=== PATIENT | male | born 1965 | race Caucasian/White ===

== ENCOUNTER 2020-12-05 07:25 | Outpatient (REF) | payer OTHER, SELFPAY ==
[2020-12-05 10:11] LABS: Anion Gap 11 (12-20); Blood Urea Nitrogen 19 mg/dL (9-16); Carbon Dioxide 29 mmol/L (22-29); Chloride 105 mmol/L (96-108); Estimated Glomerular Filt Rate > 60; Potassium 4.1 mmol/L (3.3-5.1); Sodium 141 mmol/L (135-145)
== END 2020-12-05 07:26 | disposition home or self-care (01) ==
LOC: HO.LAB 07:25
PROVIDERS: PCP Family Medicine; Visit Provider Family Medicine
DX: I10 Essential (primary) hypertension (principal)
CPT/HCPCS: 36415; 80051; 82565; 84520

== ENCOUNTER 2020-12-23 09:09 | Outpatient (REF) | payer OTHER, SELFPAY ==
--- NOTE | ~2020-12-23 | XR_ITS ---
EXAMINATION: XR ELBOW, LEFT CLINICAL INFORMATION: Pain. COMPARISON: Prior radiographs, most recently 12/27/2016. TECHNIQUE: AP, lateral, and oblique views of the left elbow. FINDINGS: Bony alignment and mineralization are normal. No acute fracture or joint effusion. The previously noted radial head fracture has healed in the interim. There is mild cortical irregularity of the anterior aspect of the distal humeral shaft, seen on the lateral view. Alignment is anatomic. Joint spaces are maintained. A tiny enthesophyte arises from the olecranon process. There is no soft tissue gas or foreign body. XR/XR elbow LT 2V IMPRESSION: Unremarkable examination, without acute fracture, dislocation or joint effusion is seen.
== END 2020-12-23 09:10 | disposition home or self-care (01) ==
LOC: HO.XRAY 09:09
PROVIDERS: PCP Family Medicine; Visit Provider Family Medicine
DX: M25.522 Pain in left elbow (principal); Z87.81 Personal history of (healed) traumatic fracture
CPT/HCPCS: 73070

== ENCOUNTER 2022-07-13 10:16 | Outpatient (REF) | payer OTHER, SELFPAY ==
[2022-07-13 13:59] LABS: Alanine Aminotransferase 61 U/L (0-40); Anion Gap 13 (12-20); Aspartate Amino Transferase 31 U/L (5-37); Blood Urea Nitrogen 18 mg/dL (9-16); Carbon Dioxide 28 mmol/L (22-29); Chloride 105 mmol/L (96-108); Cholesterol 222 mg/dL; Estimated Glomerular Filt Rate > 60; Glucose Fasting 89 mg/dL (60-99); HDL Cholesterol 32 mg/dL; LDL Cholesterol Calculated 164 mg/dl; Sodium 142 mmol/L (135-145); Triglycerides 132 mg/dL
[2022-07-13 14:17] LABS: Prostate Specific Antigen 0.77 ng/mL (<0.05-4.0)
== END 2022-07-13 10:17 | disposition home or self-care (01) ==
LOC: HO.10HDL 10:16
PROVIDERS: Visit Provider Family Medicine
DX: I10 Essential (primary) hypertension (principal); E78.00 Pure hypercholesterolemia, unspecified; R73.9 Hyperglycemia, unspecified; R35.1 Nocturia; Z79.899 Other long term (current) drug therapy; Z12.5 Encounter for screening for malignant neoplasm of prostate
CPT/HCPCS: 36415; 80051; 80061; 82550; 82565; 82947; 84153; 84450; 84460; 84520

== ENCOUNTER 2023-07-19 13:37 | Emergency (ER) | payer BC, SELFPAY ==
[2023-07-19 14:14] VITALS: BP 173/103; PULSE 75; RESP 16; TEMP 36.6; O2SAT 96; BMI 30.3
--- NOTE | 2023-07-19 14:24 | ED_ITS ---
HPI - Neuro Symptoms/Deficit General Chief Complaint: Neuro Symptoms/Deficit Stated Complaint: Numbness/drooping R side of face - sent by Dr Time Seen by Provider: 07/19/23 14:24 Source: patient, RN notes reviewed and old records reviewed Mode of arrival: ambulatory Limitations: no limitations History of Present Illness HPI Narrative: 57-year-old male past medical history significant for high blood pressure prese nts for evaluation of left facial numbness. Patient reports that he felt well when he woke up this morning. He reports when he went to call his dog and sling he was unable to whistle which is unusual for him He reports that he can not close his left eye the entire way. He reports he is unable to smile with the left side of his mouth He denies any headache, head trauma. He is moving all extremities without any issues No other complaints or concerns at this time Related Data Previous Rx's ?Medication ?Instructions ?Recorded prednisone 20 mg tablet 40 mg (2 x 20 mg) PO DAILY #10 tabs 07/19/23 valacyclovir 1 gram tablet 1,000 mg PO TID #21 tabs 07/19/23 Allergies Allergy/AdvReac Type Severity Reaction Status Date / Time No Known Allergies Allergy Verified 07/19/23 14:15 [No Known Allergies*] Review of Systems Constitutional: Constitutional: Denies body ache(s), Denies chills, Denies fever(s) and Denies headache(s) Eyes: Eyes: Denies blurry vision ENT: Denies headache(s) and Denies sore throat Cardiovascular: Cardiovascular: Denies chest pain and Denies dyspnea Respiratory: Respiratory: Denies cough and Denies dyspnea Gastrointestinal: Gastrointestinal: Denies abdominal pain, Denies nausea and Denies vomiting Musculoskeletal: Musculoskeletal: Denies back pain, Reports numbness and Reports tingling Integumentary/Breasts: Skin/Breast: Denies rash Neurologic: Denies headache(s), Reports focal weakness (facial droop), Reports numbness and Reports tingling PMFSH Social History Social History Advance Directives: No Advance Directives Information Provided: Yes Physical Exam Vital Signs: Vital Signs: Last Vital Signs Temp 97.8 F 07/19/23 14:14 Pulse 75 07/19/23 14:14 Resp 16 07/19/23 14:14 BP 173/103 H 07/19/23 14:14 Pulse Ox 96 07/19/23 14:14 O2 Del Method Room Air 07/19/23 14:14 BMI result Body Mass Index 30.3 Const: General: healthy appearing, comfortable, no acute distress, alert and awake Nutritional Appearance: well nourished Orientation/consciousness: patient oriented x3 HEENT: Head: Yes normocephalic and Yes atraumatic Eyes: Eyelids: Yes eyelids normal Conjunctivae: conjunctivae normal Sclerae: sclerae normal Corneas: corneas normal Pupils: Equal, round and reactive pupils present EOM: EOMs intact bilaterally Neck: Neck: Yes full ROM Resp: Effort & Inspection: normal respiratory effort, able to speak in complete sentences and not labored Skin: General skin exam: elasticity normal Neuro: Other: Patient has left-sided facial droop. This clearly affecting the forehead. He is able to close his left eye but is slightly delayed compared to the right. The patient has inability to raise the left corner of his mouth. Strength to all major muscle groups of the bilateral upper and lower extremities is 5/5 with good dexterity. General: patient oriented x3 Cranial nerves: Yes Equal, round and reactive pupils present and Yes Bilaterally intact EOM present Cognition (Neuro): normal cognition Medical Decision Making Medical Decision Making MDM Narrative: 57-year-old male presents for evaluation of left-sided facial droop. He woke up in the symptoms this morning. Onset was 7 point last night, last known well time was late last night. However, his symptoms are very classic for Leblanc's palsy as it affects the forehead, the patient has no numbness, tingling or weakness to any of his extremities, no difficulty with speech. Will treat for Leblanc's palsy Differential Diagnosis Differential Diagnoses: The differential diagnosis associated with the presentation includes Leblanc's palsy Cranial nerve 7 palsy CVA TIA Tests considered The following testing was considered but not selected: Consider CT scan of the brain Discharge Plan Discharge Clinical Impression: Leblanc's palsy Patient Disposition: Home, Self-Care Instructions: Leblanc Palsy (ED) Additional Instructions: Your symptoms are consistent with classic Leblanc's palsy. Most cases of Leblanc's palsy resolve within a week but can occasionally be longer Take prednisone 40 mg daily for the next 5 days Take valacyclovir 3 times daily for 1 week Follow-up with your primary doctor Return for new or worsening symptoms Prescriptions: New prednisone 20 mg tablet 40 mg PO DAILY Qty: 10 0RF valacyclovir 1 gram tablet 1,000 mg PO TID Qty: 21 0RF Stand Alone Forms: Work/School Release Print Language: Swedish
[2023-07-19 14:36] VITALS: BP 173/103; PULSE 75; RESP 16; TEMP 36.6; O2SAT 96
== END 2023-07-19 14:36 | disposition home or self-care (01) ==
PROVIDERS: Emergency Provider Emergency Medicine; PCP Family Medicine
DX: G51.0 Bell's palsy (principal)
CPT/HCPCS: 99282; 99283

== ENCOUNTER 2023-11-23 09:52 | Outpatient (REF) | payer BC, SELFPAY ==
[2023-11-23 11:10] LABS: Estimated Average Glucose 111 mg/dL; Hemoglobin A1c % 5.5 % (<6.0)
[2023-11-23 11:26] LABS: Alanine Aminotransferase 66 U/L (0-40); Anion Gap 14 (12-20); Aspartate Amino Transferase 32 U/L (5-37); Blood Urea Nitrogen 14 mg/dL (9-16); Carbon Dioxide 29 mmol/L (22-29); Chloride 103 mmol/L (96-108); Cholesterol 227 mg/dL (<200); Estimated Glomerular Filt Rate > 60; Glucose Fasting 98 mg/dL (60-99); HDL Cholesterol 36 mg/dL (>40); LDL Cholesterol Calculated 137 mg/dL (<100); Potassium 4.8 mmol/L (3.3-5.1); Sodium 141 mmol/L (135-145); Triglycerides 272 mg/dL (<150)
== END 2023-11-23 09:53 | disposition home or self-care (01) ==
LOC: HO.10HDL 09:52
PROVIDERS: Visit Provider Family Medicine
DX: I10 Essential (primary) hypertension (principal); R73.9 Hyperglycemia, unspecified; E78.00 Pure hypercholesterolemia, unspecified; R11.0 Nausea
CPT/HCPCS: 36415; 80051; 80061; 82565; 82947; 83036; 84450; 84460; 84520

== ENCOUNTER 2024-05-30 08:50 | Outpatient (REF) | payer BC, SELFPAY ==
--- NOTE | ~2024-05-30 | XR_ITS ---
EXAMINATION: XR CHEST 2 VIEWS HISTORY: Cough, sob COMPARISON: There are no prior studies for comparison. FINDINGS: PA and lateral views of the chest are submitted. There is patchy airspace opacity in the right lower lobe consistent with pneumonia. The left lung is clear. There is no pleural effusion, pneumothorax, or pulmonary vascular congestion. The heart is normal in size. There is degenerative disc disease of the spine. XR/XR chest 2V IMPRESSION: Right lower lobe pneumonia. Follow-up is recommended to document resolution. Electronically signed by: Agustin Dela Cruz MD 05/30/2024 09:10 AM EDT
--- OUTSIDE RECORDS SUMMARY | 2024-05-30 09:46 | XMS_ITS | Data Portability ---
Author Organization [facility] [address] Address [address] [place] [address] Assessment No assessment recorded. Plan of Treatment Reminders Order Date Submit Date Provider Last Modified By Organization Details Last Modified Time Details Appointments None recorded. Lab None recorded. Referral nursing staff development coordinator referral 2022 023 [email or web address] Grace Fuentes DPM, [address] [place] [address], [address], 17:03:50 Procedures None recorded. Surgeries None recorded. Imaging None recorded. Medication Orders mupirocin 2 % topical ointment 2022 023 [facility][id number], [address] [place], [address], 16:59:27 amoxicillin 875 mg-potassiu m clavulanate 125 mg tablet 2022 023 [id number], [address] [place], [address], 16:59:27 Patient TargetsNo targets recorded. Patient Instructions Encounter Date Encounter Id Patient Instructions Last Modified By Organization Details Last Modified Time 03/07/2023 [id number] cellulitis: care instructions [email or web address] Not available 03/07/2023 16:59:25 ingrown toenail: care instructions [email or web address] Not available 03/07/2023 16:59:39 Take the antibiotic and use the ointment as prescribed. Soak your toe in warm water several times daily. A referral to podiatry has been made for you - Call Dr. Fuentes for an appointment as soon as possible. See printed instructions. Do not manipulate the area. Seek Emergency Medical evaluation for any worsening symptoms, particularly for fever, chills, increased pain, redness or swelling of the toe. [email or web address] Not available 03/07/2023 17:01:25 Reason for Referral Permit Specialist Referral for Ingr owing nail of toe of left foot Infected, ingrown left great toenail. Referring Physician: Corrine Snow, Urgent Care, Encounter Date: 03/07/2023 Problems Name Problem SNOMED Code Status Onset Date Resolution Date Notes Provider Name and Address Organization Details Recorded Time Hypertensive disorder 20945850 Active [facility] [employer] 3 16:17:45 Problem Notes None recorded. Medical Equipment None Reported. Allergies No known drug allergies Medications Name Sig Start Date Stop Date Status Note LastModified by Organization Details LastModified Time lisinopril 20 mg tablet TAKE 1 TABLET BY MOUTH EVERY DAY active Not Available Not Available No t Available sildenafil 100 mg tablet TAKE 1/2 TABLET BY MOUTH NEEDED active Not Available Not Available No t Available mupirocin 2 % topical ointment APPLY A SMALL AMOUNT TO AFFECTED AREA 3 TIMES A DAY active Not Available Not Available No t Available amoxicillin 875 mg-potassium clavulanate 125 mg tablet TAKE 1 TABLET BY MOUTH EVERY 12 HOURS FOR 7 DAYS active Not Available Not Available No t Available Vitals Date Recorded Body height Body mass index (BMI) Body weight Oxygen saturation Oxygen saturation in Arterial blood by Pulse oximetry Heart rate Respiratory rate Body temperature Pain severity - 0-10 verbal numeric rating [Score] - Reported Systolic blood pressure Diastolic blood pressure Provider Name and Address Organization Details Last Updated DateTime 3 177.8 cm 29.4 kg/m2 29571.4 4 g 99 % 99 % 89 /min 18 /min 98.6 [degF] 8 148 mm[Hg] 95 mm[Hg] [employer]oro [employer] 3 16:16:28 Social History Question Answer Notes LastModified by Organizat ion Details LastModified Time Tobacco Smoking Status Never Smoker [facility] 03/07/2023 16:18:02 What Is Your Level Of Alcohol Consumption? None Information not available 03/07/2023 Are You Currently Employed? Yes Information not available 03/07/2023 Have You Had A Flu Shot This Season? Yes Information not available 03/07/2023 What Is Your Relationship Status? Information not available 03/07/2023 Do You Use Any Illicit Or Recreational Drugs? No Information not available 03/07/2023 Are You Currently In School? No Information not available 03/07/2023 Do You Or Have You Ever Used Any Other Forms Of Tobacco Or Nicotine? No Information not available 03/07/2023 Sex: Unknown Functional Status None recorded. Mental Status None recorded. Family History Relationship Description Onset Age of this Age Resolved Age Notes LastModified by Organization Details LastModified Time Father No current problems or disability Not available 03/07 16:17:47 Mother No current problems or disability Not available 03/07 16:17:48 Medical History No medical history recorded. Past Encounters Encounter ID Performer Location Encounter Start Date Encounter Closed Date Diagnosis/Indication Diagnosis SNOMED-CT Code Diagnosis ICD10 Code Diagnosis Note [id number] [address] [address] 05/31/2019 11:38:14 05/31/2019 12:32:36 [id number] Corrine [place] [address] [place] [address] 03/07/2023 15:57:49 03/07/2023 17:03:49 Localized infection of skin AND/OR subcutaneous tissue 499426098 L08.9 Ingrowing nail of toe of left foot 1961341351 6304954 L60.0 Health Concerns Section Related Observation LastModified by Organization Detai ls LastModified Time None Recorded Concern Status LastModified by Organization Details LastModified Time None Recorded Advance Directives Directive None Recorded Payers Encounter Date Sequence Insurance Name Policy Number Policy Hadley Covered Member ID Hadley Member ID Guarantor Name 03/07/2023 1 [facility] [id number] Agustin Dubose [id number] 1 Agustin Dubose Notes Date Note Type Note Provider Name and Address Organization Details Recorded Time 3 text/html ToesReported bypatient.source of patient informationInformation obtained from patient; Patient arrived at Urgent Care ambulatory Location:left; lateral; dorsal Quality:aching; throbbing; constant; worsening Severity:moderate Duration:2 weeks Timing:gradual Context:atraumatic Alleviating Factors:nothing helps Aggravating Factors:walking; Palpation. Wearing shoes. Associated Symptoms:no weakness; no numbness; no tingling; no ecchymosis; no catching/locking; no popping/clicking; no buckling; no grinding; no instability; no fever; no chills;swelling;redness;war mth;drainage Previous Surgery:none Prior Imaging:none Previous Injections:none Previous PT:noneNotes:57 year old male presenting for evaluation of left great toe pain, redness, swelling about lateral aspect of nail getting progressively worse for the past 2 weeks. He has been manipulating the area with increased pain. He has had some purulent drainage for a few days. No red streaking, fever or chills. No numbness or weakness of the digit. No hx of preceeding trauma. Corrine Snow MD [address] [place], [address], [place] - [facility] 03/08/2023 12:57:01
--- OUTSIDE RECORDS SUMMARY | 2024-05-30 09:47 | XMS_ITS | Patient Health Record ---
Author Organization [facility] Address [address] [place] [address] Care Team Providers Care Coke Handling Supervisor Name Role Phone Barrett Domingo MD Primary Care Provider Unavail jeremiah Montse Leblanc Unavailable [phone] Allergies No Known Allergies Reason For Referral No Information Medications Medication SIG (Take, Route, Fr equency, Duration) Notes Start Date End Date Status Lisinopril 20 MG 1 tablet Orally Once a day Active Cephalexin 500 MG 1 capsule Orally nic ry 12 hrs for 5 days Active Social History Tobacco Use: Social History Observation Description Date Details (start date - stop date) Former Smoker NA - NA Tobacco Use/Smoking Question Answer Notes Are you a: former smoker Additional Findings: Tobacco Non-User Current no n-smoker Alcohol Screen Question Answer Notes Did you have a drink containing alcohol in the p ast year? Yes Points 0 Interpretation Negative Tobacco use other than smoking: Question Answer Notes Are you an other tobacco user? No Vital Signs Height 5 ft 10 in in 06/13/2023 Weight 205 lbs 06/13/2023 BMI 29.41 kg/m2 06/13/2023 Encounters Encounter Location Date Provider Diagnosis [facility] [address] [place] [address] 06/13/2023 Montse Leblanc Abscess of toe, left L02.612 and Cellulitis of toe of left foot L03.032 Assessments Encounter Date Diagnosis (ICD Code) Assessment Notes Treatment Notes Treatment Clinical Notes Section Notes 06/13/2023 Abscess of toe, left (ICD-10 - L02.612) Patient Educated with: WOUND CARE INSTRUCTIONS.p df (WOUND CARE INSTRUCTIONS.p df) 06/13/2023 Cellulitis of toe of left foot (ICD-10 - L03.032) Plan Of Treatment No Information Insurance Providers Payer Name Payer Address Payer Phone Subscriber Number Group Number Insured Name Patient Relationship to Insured Coverage Start Date Coverage End Date [facility] All Others [address] [place] [address] [id number] Agustin Dubose Self - patient is the insured Medical (General) History Medical History History ICD Code High blood pressure Measles Mumps Chicken pox Surgical History Surgery Date(Month/Year) appendectomy broken left elbow
--- OUTSIDE RECORDS SUMMARY | 2024-05-30 09:47 | XMS_ITS ---
Author Organization [facility] Address [address] [place] [address] Care Team Providers Care Word Processor Name Role Phone Barrett Domingo MD Primary Care Provider Unavail jeremiah Deana Montse Unavailable [phone] Allergies No Known Allergies REASON FOR VISIT pt states last pcp visit 05/2022, Possible Infection, Skin problem(s) Medications Medication SIG (Take, Route, Fr equency, [...] 06/13/2023 Encounters Encounter Location Date Provider Diagnosis [facility] [address] [place] [address] 06/13/2023 Montse Leblanc Abscess of toe, left L02.612 and Cellulitis of toe of left foot L03.032 Assessments Encounter Date Diagnosis (ICD Code) Assessment Notes Treatment Notes Treatment Clinical Notes Section Notes 06/13/2023 Abscess of toe, left (ICD-10 - L02.612) Patient Educated with: WOUND CARE INSTRUCTIONS.p df (WOUND CARE INSTRUCTIONS.p df) 06/13/2023 Cellulitis of toe of left foot (ICD-10 - L03.032) Plan Of Treatment Medication Medication Name Sig Start Date Stop Date Notes Cephalexin 500 MG 1 capsule Orally every 12 hrs for 5 days Treatment Notes Assessment Notes Abscess of toe, left Patient Educated wi th: WOUND CARE INSTRUCTIONS.pdf (WOUND CARE INSTRUCTIONS.pdf) Next Appt Details Follow Up: prn, Reason: Procedure Notes * Category Sub-Category Detail Notes I&D nail abscess Location Lateral nail aristeo rder, TA Procedure Performed incision a nd drainage of Single Nail Abscess with use of sterile nail nipper/316 blade. Approximately ( 0.1 ) cc purulent fluid material was drained. The infected devitalized soft tissue was curettaged to healthy bleeding bed. Any affected nail portion was removed to the eponychium . Any evidence of granuloma was also removed at this time. No underlying bone was visualized. There was minimal bleeding as hemostasis was achieved through the temporary use of either a digital tournaquet or the aforementioned local with epinephrine. An application of sterile Bacitracin dressing was performed. Local wound care instructions were discussed and dispensed. Recommended Tylenol or Motrin for pain/discomfort (41542) Type Single, Abscess Anesthesia 3 cc of 1 percent Li docaine Plain local anesthesic utilizing aseptic technique Progress Notes * Agustin WOODARDDOB: 8 (57 yo M)Acc No.[id number]:06/13/2023 Progress Notes Patient:?Agustin Woodard Provider:?Montse Leblanc DPM :1965???Age:57 Y???Sex:Male Ramsey e:06/13/2023 Address:[address] [place], [place] [address] Pcp:Barrett Domingo MD Subjective: * Chief Complaints: * ???Pt states last pcp visit 3Possible InfectionSkin problem(s) * HPI: ???Skin problems:?Nature:?redness, swelling , tender.?Location:?Left 1st Toe(s).?Duration:?a few months.?Course:?worse.?Treatments:?none.? * Medical History:? * Surgical History:?appendecto my broken left elbow * Hospitalization/Major Diagno stic Procedure:?No Hospitalization History. * Family History:?Mother: dece ased, diagnosed with Diabetic - NIDDM.?Father: alive, diagnosed with Diabetic - NIDDM.?Siblings: diagnosed with Unspecified essential hypertension.? * Social History:?Tobacco Use:?Tobacco Use/Smoking?Are you a:?former smoker ?Additional Findings: Tobacco Non-User?Current non-smoker ?Tobacco use other than smoking?Are you an other tobacco user??No ???Drugs/Alcohol:?Drugs?Have you used drugs other than those for medical reasons in the past 12 months??No ?Alcohol Screen?Did you have a drink containing alcohol in the past year??Yes ?Points?0 ?Interpretation?Negative ???Miscellaneous:?Caffeine: yes, 1-2 cups per day. ?Exercise: yes, walking. ?Marital status: . ?Occupation: [employer]. * Medications:?TakingLisinopri l 20 MG Tablet 1 tablet Orally Once a dayMedication List reviewed and reconciled with the patientTaking Lisinopril 20 MG Tablet 1 tablet Orally Once a dayMedication List reviewed and reconciled with the patient * Allergies:?N.K.D.A.yes[Aller gies Verified] Objective: * Vitals:?Ht: 5 ft 10 in, Wt:2 05, BMI:29.41, Shoe size: 10, Ht-cm: 177.8 cm, Wt- k.99 kg. * Examination: ???Abscess/infected nail: ?INSPECTION?Reveals nail incurvation, pain on palpation, groove laceration, inflammation, malodor, localized cellulitis, and purulent abscess with pre- operative size of approximately ( 1-2 ) mm square without exposed bone extensive granuloma present Lateral nail border TA.?General Examination: ?GENERAL APPEARANCE:? Denies fever, chills, malaise, lymphadenopathy Reveals a pleasant, alert, well nourished, well-developed, well hydrated individual, who demonstrates proper attention to hygiene/body habitus, and is in no acute distress.?ORIENTED:? person, place, and time.?Dermatologic: ?SKIN FINDINGS:? Skin shows sign(s) of, localized cellulitis T5 without lymphangitis extending proximally to the level of the MPJ.?Vascular: ?DP PULSES:?3/4, B/L.?PT PULSES:?3/4, B/L.?CAPILLARY FILL TIME:?immediate, all digits, B/L.?SKIN TEMPERTURE GRADIENT OF THE LOWER EXTERMITIES:?normal, warm to cool, proximal to distal, B/L, B/L.?HAIR GROWTH/TEXTURE/ELASTICITY/TURGOR:?normal, B/L.?PIGMENTATION:?normal, B/L.?Neurological: ?SENSORY:?Neurological exam reveals intact sensorium, pain sensation normal, vibration sensation intact, pinprick sensation is normal in the lower extremities, Pt denies, anesthesia, burning, paresthesia, tingling, B/L.?Orthopedic: ?MUSCLE STRENGTH:?5/5 all groups in a symmetrical fashion, B/L.? Assessment: * Assessment: 1.?Abscess of toe, left - L0 2.612?2.?Cellulitis of toe of left foot - L03.032 (Primary), Acute problem, Complicated w/ Multiple Tx Options(4),Dx New problem, Prognosis Uncertain (4),Rx Management (4)? Plan: * Treatment: 2.?Abscess of toe, left? Notes: Patient Educated with: WOUND CARE INSTRUCTIONS.pdf (WOUND CARE INSTRUCTIONS.pdf)?? * Procedures:?I&D nail abscess:?Type?Single, Abscess.?Anesthesia?3 cc of 1 percent?Lidocaine Plain local anesthesic utilizing aseptic technique.?Location?Lateral nail border, TA.?Procedure?Performed incision and drainage of Single Nail Abscess with use of sterile nail nipper/316 blade. Approximately ( 0.1 ) cc purulent fluid material was drained. The infected devitalized soft tissue was curettaged to healthy bleeding bed. Any affected nail portion was removed to the eponychium . Any evidence of granuloma was also removed at this time. No underlying bone was visualized. There was minimal bleeding as hemostasis was achieved through the temporary use of either a digital tournaquet or the aforementioned local with epinephrine. An application of sterile Bacitracin dressing was performed. Local wound care instructions were discussed and dispensed. Recommended Tylenol or Motrin for pain/discomfort (19280).? * Procedure Codes:?94036 DRAIN AGE OF SKIN ABSCESS * Preventive Medicine:? ??Counseling:?Discussion:?-03: Office or other outpatient visit for the evaluation and management of a new patient, which required a medically appropriate history and/or examination and LOW level of DECISION MAKING for: 1 STABLE ACUTE UNCOMPLICATED PROBLEM, 2 OR MORE MINOR PROBLEMS, OR 1 STABLE CHRONIC PROBLEM, THAT POSE(S) A LOW RISK FOR MORBIDITY/MORTALITY. The visit on the day of the encounter encompassed interpreting the data and educating the patient as to the nature of their condition, treatment options available according to their individual PMH, meds, allergies, and overall health/living conditions, as well as any potential risks or complications that may occur from a failure to adhere to, and participate in, the recommended course of therapy. The discussion included a complete verbal, and/or written explanation of the examination results, any x-rays taken, the proposed diagnosis, and outline of the treatment plan. A schedule for future care needs was also explained. The patient verbalized an understanding of the instructions at this time and agreed to be an active participant in their treatment. If the patient should think of any questions or concerns after the visit, I have encouraged the patient to call the office.?Abscess/Paraonychia/Ingrown Nails:?We discussed the possible etiologies (genetic, improper nail care, shoe gear, nail trauma) which may lead to ingrown nails and/or paronychial infections. We discussed and reviewed palliative/nonsurgical/deferring definitive treatment (vs) undergoing the treatment procedures of nail avulsion(s) or PNA, which may prevent recurrence and give more lasting results. The possible risks/complications such as worsened condition/delayed healing/nonhealing/failure/recurrence/infection, the potential benefits/advantages of decreased pain/deformity, as well as alterative treatment options including applying nail softening agents/nail groove packing were discussed. No guarantees were given regarding any outcome for any procedure. The patient was educated in the length of time for the affected nail to regrow once completely healed from a nail avulsion procedure. Once the condition has completely healed, the patient was consulted on proper nail care. Patient questions such as details of each procedure, varying time to heal, activity post procedure, and shoe gear were discussed and the answers were verbally confirmed fully understood.?Cellulitis/Lymphangitis?The Pt. was counseled on the diagnosis, etiology, treatment options, and importance for adherence to recommendations regarding the treatment for Cellulitis. Abx were Rxed to address the cellulitis. The advantages and disadvantages of an antibiotic medication, along with its side effects, were discussed with the patient to their comprehended satisfaction. Patient questions re: use, dosage, and possible pharmacutical interactions were reviewed and the answers clearly understood. If the condition should worsen while taking the antibiotics as directed, it was recommeded that the patient call the office immediately or seek emergency medical care. The patient verbally confirmed a full understanding of the above information.? * Follow Up:?prn * Images: * Sign off status: Completed true * Provider:?Montse Leblanc DPM Date:? Generated for Rosemary sherwood/Desmond/Alexandrea on:?05/30/2024 09:46 AM EDT History and Physical Notes * HPI (History of Present Illness) Category Sub-Category Detail Notes Category Not es Skin problems Nature: redness , swelling , tender Location: Left 1st Toe(s) Duration: a few months Course: worse Treatments: none Examination Category Sub-Category Detail Notes Category Not es Neurological SENSORY: Neurological exa m reveals intact sensorium, pain sensation normal, vibration sensation intact, pinprick sensation is normal in the lower extremities, Pt denies, anesthesia, burning, paresthesia, tingling, B/L Dermatologic SKIN FINDINGS: Skin shows sign( s) of, localized cellulitis T5 without lymphangitis extending proximally to the level of the MPJ Orthopedic MUSCLE STRENGTH: 5/5 all groups in a symmetrical fashion, B/L General Examination GENERAL APPEARANCE: Denies f ever, chills, malaise, lymphadenopathy Reveals a pleasant, alert, well nourished, well-developed, well hydrated individual, who demonstrates proper attention to hygiene/body habitus, and is in no acute distress ORIENTED: person, place, and t laura Vascular DP PULSES (B): 3/4, B/L PT PULSES (B): 3/4, B/L CAPILLARY FILL TIME: immediate, all digi ts, B/L TEMPERTURE GRADIENT (C): normal, warm to cool, proximal to distal, B/L, B/L TROPHIC CONDITION-TEXTURE/ELASTICITY/TURGOR/HAIR GROWTH (B): normal, B/L PIGMENTATION: normal, B/L Abscess/infected nail INSPECTION Reveals na il incurvation, pain on palpation, groove laceration, inflammation, malodor, localized cellulitis, and purulent abscess with pre-operative size of approximately ( 1-2 ) mm square without exposed bone extensive granuloma present Lateral nail border TA
--- OUTSIDE RECORDS SUMMARY | 2024-05-30 09:47 | XMS_ITS ---
Author Organization [facility] Address [address] [place] [address] Care Team Providers Care Ocular Care Technician Name Role Phone Barrett Domingo MD Primary Care Provider Unavail Montse Rucker [phone] REASON FOR VISIT RAIL [facility] Entered Encounters Encounter Location Date Provider Diagnosis [address] [address] 05/29/2023 Montse Leblanc Plan Of Treatment No Information Progress Notes * YAMILETAgustin ConnellyDOB: 8 (57 yo M)Acc No.[id number]:05/29/2023 Patient:?Agustin Dubose :1965???Age:57 Y???Sex:Male Address:[address] [place] [address], [address] * true * Date:? Generated for Printi ng/Famerling/eTransmitting on:?05/30/2024 09:47 AM EDT
== END 2024-05-30 08:51 | disposition home or self-care (01) ==
LOC: HO.XRAY 08:50
PROVIDERS: PCP Family Medicine; Visit Provider Family Medicine
DX: R06.02 Shortness of breath (principal); R05.9 Cough, unspecified
CPT/HCPCS: 71046

== ENCOUNTER → 2024-05-30 08:55 | Outpatient (BNV) | payer BC, SELFPAY | PROVIDERS: PCP Family Medicine; Visit Provider Radiology Diagnostic Radiology | DX: J18.9 Pneumonia, unspecified organism (principal) | CPT/HCPCS: 71046 ==

== ENCOUNTER 2024-05-30 09:14 | Outpatient (REF) | payer BC, SELFPAY ==
[2024-05-30 10:37] LABS: MANUAL DIFF FLAG NO
[2024-05-30 10:59] LABS: Alanine Aminotransferase 70 U/L (0-40); Albumin Level 3.9 g/dL (3.5-5.0); Alkaline Phosphatase 73 U/L (39-117); Anion Gap 10 (12-20); Aspartate Amino Transferase 42 U/L (5-37); Bilirubin Direct 0.2 mg/dL (0.0-0.5); Bilirubin Total 0.5 mg/dL (0.0-1.0); Blood Urea Nitrogen 18 mg/dL (9-16); Carbon Dioxide 30 mmol/L (22-29); Chloride 106 mmol/L (96-108); Estimated Glomerular Filt Rate > 60; Sodium 142 mmol/L (135-145); Total Protein 7.2 g/dL (6.5-8.0)
[2024-05-30 11:01] LABS: Basophils Absolute Auto 0.1 X10*3/uL (0.0-0.2); Basophils Percent Auto 0.8 % (0-2); Eosinophils Absolute Auto 0.5 X10*3/uL (0.0-0.4); Hematocrit 39.5 % (42.0-52.0); Hemoglobin 13.7 g/dl (14.0-18.0); Imm Gran Abs Auto 0.02 X10*3/uL (0.00-0.03); Imm Gran Pct Auto 0.3 % (0.0-0.4); Lymphocytes Absolute Auto 2.4 X10*3/uL (1.2-4.9); Mean Corpuscular HGB Conc 34.7 g/dl (31.0-36.0); Mean Corpuscular Hemoglobin 29.8 pg (27.0-33.0); Mean Corpuscular Volume 85.9 fL (80.0-98.0); Mean Platelet Volume 9.4 fL (9.4-12.4); Monocytes Absolute Auto 0.8 X10*3/uL (0.1-1.2); Monocytes Percent Auto 10.7 % (2-11); Neutrophils Absolute Auto 3.7 x10*3/uL (2.0-8.3); Neutrophils Percent Auto 49.2 % (45-73); Platelet Count 302 X10*3/uL (160-400); Red Cell Distribution Width 13.6 % (11.0-16.0); White Blood Count 7.6 X10*3/uL (4.8-10.8)
[2024-05-30 11:15] LABS: Thyroid Stimulating Hormone 1.17 uIU/mL (0.32-4.0)
[2024-05-30 12:00] LABS: Erythrocyte Sedimentation Rate 14 MM/HR (0-15)
== END 2024-05-30 09:15 | disposition home or self-care (01) ==
LOC: HO.10HDL 09:14
PROVIDERS: Visit Provider Family Medicine
DX: I10 Essential (primary) hypertension (principal); R06.02 Shortness of breath; R63.4 Abnormal weight loss
CPT/HCPCS: 36415; 80051; 80076; 82565; 84443; 84520; 85025; 85652

== ENCOUNTER 2024-06-14 07:23 | Outpatient (REF) | payer BC, SELFPAY ==
--- NOTE | ~2024-06-14 | XR_ITS ---
EXAMINATION: XR CHEST CLINICAL INFORMATION: PNEUMONIA, COUGH COMPARISON: May 30, 2024. TECHNIQUE: 2 views of the chest were obtained. FINDINGS: Pulmonary reticular pattern. Patchy opacity right lower lung lobe. No pleural effusion. No pneumothorax. No hyperinflation. Cardiomediastinal silhouette size is normal. Multilevel thoracic spondylosis. XR/XR chest 2V IMPRESSION: Overall improved aeration. Less pronounced acute airspace disease, right lower lung lobe. Electronically signed by: Norm Xie MD 06/14/2024 07:41 AM EDT
[2024-06-14 08:02] LABS: MANUAL DIFF FLAG NO
[2024-06-14 08:13] LABS: Basophils Absolute Auto 0.1 X10*3/uL (0.0-0.2); Eosinophils Absolute Auto 0.4 X10*3/uL (0.0-0.4); Eosinophils Percent Auto 5.6 % (0-4); Hematocrit 39.9 % (42.0-52.0); Hemoglobin 13.8 g/dl (14.0-18.0); Imm Gran Abs Auto 0.01 X10*3/uL (0.00-0.03); Imm Gran Pct Auto 0.1 % (0.0-0.4); Lymphocytes Absolute Auto 2.8 X10*3/uL (1.2-4.9); Lymphocytes Percent Auto 40.8 % (20-40); Mean Corpuscular HGB Conc 34.6 g/dl (31.0-36.0); Mean Corpuscular Hemoglobin 29.7 pg (27.0-33.0); Mean Corpuscular Volume 85.8 fL (80.0-98.0); Mean Platelet Volume 9.7 fL (9.4-12.4); Monocytes Absolute Auto 0.7 X10*3/uL (0.1-1.2); Monocytes Percent Auto 10.1 % (2-11); Neutrophils Absolute Auto 2.9 x10*3/uL (2.0-8.3); Neutrophils Percent Auto 42.4 % (45-73); Platelet Count 233 X10*3/uL (160-400); Red Blood Count 4.65 X10*6/uL (4.60-5.80); Red Cell Distribution Width 13.4 % (11.0-16.0); White Blood Count 6.8 X10*3/uL (4.8-10.8)
== END 2024-06-14 07:24 | disposition home or self-care (01) ==
LOC: HO.XRAY 07:23
PROVIDERS: PCP Family Medicine; Visit Provider Family Medicine
DX: J18.9 Pneumonia, unspecified organism (principal); R05.9 Cough, unspecified
CPT/HCPCS: 36415; 71046; 85025

== ENCOUNTER → 2024-06-14 07:29 | Outpatient (BNV) | payer BC, SELFPAY | PROVIDERS: PCP Family Medicine; Visit Provider Radiology Diagnostic Radiology | DX: R05.9 Cough, unspecified (principal) | CPT/HCPCS: 71046 ==

== ENCOUNTER 2024-11-05 09:25 | Outpatient (AMB) | payer BC, SELFPAY ==
--- NOTE | 2024-11-05 09:31 | MHC.PC.OV ---
Vital Signs 11/05/24 09:36 Height 5 ft 9 in Weight 97.976 kg BMI 31.9 BP 150/90 H Respiration 1 L Pulse 65 Pulse Source Pulse Oximeter Temp 98.2 F Temp Source Temporal Artery Scan Pulse Oximetry (%) 95 Oxygen Delivery Method Room Air Intake Visit Reasons: 6 MO F/UP - FABIOLA PT - see comments Latin American Studies Director Required: No Accompanied by: Self / Same As Patient Allergies No Known Allergies (No Known Allergies*) Allergy (Verified 11/05/24 09:32) Medication List - Last Reconciled 11/09/24 by CARLOZ Bell lisinopril 20 mg PO DAILY sildenafil 50 mg PO DAILY PRN Tobacco use date assessed: 11/05/24 Dental Screening Dental Screen Date: 11/05/24 Did you have a dental visit in the last 12 months?: No Did you have a dental problem in the last 6 months where you did not have access to dental care?: No Was dental information given to patient?: Yes HPI HPI Comments History of Present Illness Details 59 year old male with history of erectile disfunction, hld, htn, herd, tachycardia, presents to the office today for management of chronic conditions and to establish care. ED- has difficulty with sildenafil. feel sometimes this works sometimes it does not. Feels some pressure from his making things more difficult. Does have desire HTN- lisinopril. bp improved on recheck 136/86 [place] palsy- several months ago. Treated with antiviral and prednisone with full recovery Former smoker Concerns: As above Allergy symptoms Obesity ROS: General: No fevers, malaise, unintentional weight loss HEENT: No blurred vision, diplopia. No sore throat, nasal congestion, rhinorrhea, sinus pain, ear pain Cardiovascular: No chest pain, palpitations, or leg edema Respiratory: No shortness of breath, wheezing, cough GI: No abdominal pain, nausea, vomiting, diarrhea, constipation, melena, hematochezia : No dysuria, hematuria, increased urinary frequency, decreased urinary output. see hpi MSK: No myalgia, back pain Neuro: No headaches, weakness, paresthesias Skin: No rashes or lesions EXAM: Constitutional - Awake and Alert, No apparent distress Eyes - PERRL Cardiovascular - S1S2, RRR, No edema Respiratory - Normal lung expansion, Normal respiratory effort, No respiratory distress, CTA bilaterally Extremities - no calf tenderness bilaterally, no swelling Skin - Warm/Dry Neurological - Alert & oriented x3 Psychological - Appropriate affect [facility] Medical History (Updated 11/05/24 @ 09:55 by CARLOZ Bell) Leblanc's palsy Gout Seasonal allergies Obesity (BMI 30.0-34.9) HLD (hyperlipidemia) Erectile dysfunction HTN (hypertension) Social History Housing: House Patient Tobacco Use Status: Former Tobacco user (quite in 1999) e-Cigarette/Vaping Use: Never Used service: Yes Current occupational status: employed Cognitive needs: No Hearing needs: No Vision needs: Yes (Rx glasses) Questionnaire PHQ-9 Over the last 2 weeks, how often have you been bothered by any of the following problems? 1. Little interest or pleasure in doing things: not at all 2. Feeling down, depressed, or hopeless: not at all 3. Trouble falling or staying asleep, or sleeping too much: more than half the days 4. Feeling tired or having little energy: more than half the days 5. Poor appetite or overeating: more than half the days 6. Feeling bad about yourself - or that you are a failure or have let yourself or your family down: not at all 7. Trouble concentrating on things, such as reading the newspaper or watching television: not at all 8. Moving or speaking so slowly that other people could have noticed. Or the opposite - being so fidgety or restless that you have been moving around a lot more than usual: not at all 9. Thoughts that you would be better off or of hurting yourself in some way: not at all Total score: 6 Source: Developed by Drs. Agustin Castillo, Glo Boucher, Gordon Shirley and colleagues, with an educational gutierrez from [employer]. Thrive Questionnaire Date Thrive assessed: 11/06/24 I am a: Patient What is your living situation today?: I have a steady place to live Within the past 12 months, did the food you bought not last and you didn't have the money to get more?: Never true Within the past 12 months, did you worry whether your food would run out before you got money to buy more?: Never true Do you have trouble paying for medicines?: No Do you have trouble getting transportation to medical appointments?: No Do you have trouble paying your heating and electricity bill?: No Do you have trouble taking care of your child, family member or friend?: No Do you have trouble with day-to-day activities such as bathing, preparing meals, shopping, managing finances, etc.?: No Are you currently unemployed and looking for a job?: No Are you interested in more education?: No Please select the resources that you would like help with: None THRIVE Score: 0 DOROTA-7 AMB Questionnaire DOROTA-7 Date DOROTA - 7 assessed: 11/06/24 Feeling nervous, anxious, or on edge: 0 = Not at all Not being able to stop or control worryin = Not at all Worrying too much about different things: 0 = Not at all Trouble relaxin = Not at all Being so restless that it is hard to sit still: 0 = Not at all Becoming easily annoyed or irritable: 1 = Several days Feeling afraid as if something awful might happen: 0 = Not at all Total DOROTA-7 score (0-4 normal; 5-9 mild; 10-14 moderate; 15-21 severe): 1 Source: Developed by Drs. Agustin Castillo, Glo Boucher, Gordon Shirley and colleagues, with an educational gutierrez from [employer]. Physical exam (Primary Care) Vital Signs: Last Vital Signs Temp 98.2 F 11/05/24 09:36 Pulse 65 11/05/24 09:36 Resp 1 L 11/05/24 09:36 BP 150/90 H 11/05/24 09:36 Pulse Ox 95 11/05/24 09:36 Oxygen Delivery Method Room Air 11/05/24 09:36 BMI result Body Mass Index 31.9 Tobacco/Smoking Status: Tobacco use Status Tobacco use date assessed 11/05/24 11/05/24 09:38 Patient Tobacco Use Status Former Tobacco user (quite 11/05/24 09:38 in 1999) e-Cigarette/Vaping Use Never Used 11/05/24 09:38 PHQ-9: PHQ-9 Score PHQ-9: Total score 6 11/09/24 16:58 Thrive Assessment: Date of Thrive Assessment Date Thrive assessed 11/06/24 11/06/24 07:24 Coding Level of Care Code New Pt Level 4 (51022) Complex EM visit Add On G2211 Diagnoses HLD (hyperlipidemia) E78.5 HTN (hypertension) I10 Erectile dysfunction N52.9 Obesity (BMI 30.0-34.9) E66.811 Seasonal allergies J30.2 Assessment & Plan Assessment & Plan (1) HLD (hyperlipidemia): Code(s): E78.5 - Hyperlipidemia, unspecified Category: Medical Plan: Lipid panel. Calculate ASCVD. Diet improvements (2) HTN (hypertension): Code(s): I10 - Essential (primary) hypertension Category: Medical Plan: Controlled on recheck. Continue lisinopril (3) Erectile dysfunction: Code(s): N52.9 - Male erectile dysfunction, unspecified Category: Medical Plan: Recommended having conversation with his as this seems to be the biggest parul at this time as sildenafil is otherwise effective. Monitor (4) Obesity (BMI 30.0-34.9): Code(s): E66.811 - Obesity, class 1 Category: Medical Plan: Continue with efforts. Referred to nutrition (5) Seasonal allergies: Code(s): J30.2 - Other seasonal allergic rhinitis Category: Medical Plan: Trial flonase/linette Plan follow up in 6 months Orders: Orders Complete Blood Count Auto Diff 11/05/24 E66.811 - Obesity, class 1, E78.5 - Hyperlipidemia, unspecified, I10 - Essential (primary) hypertension, N52.9 - Male erectile dysfunction, unspecified Hemoglobin A1c 11/05/24 E66.811 - Obesity, class 1, E78.5 - Hyperlipidemia, unspecified, I10 - Essential (primary) hypertension, N52.9 - Male erectile dysfunction, unspecified Lipid Panel 11/05/24 E66.811 - Obesity, class 1, E78.5 - Hyperlipidemia, unspecified, I10 - Essential (primary) hypertension, N52.9 - Male erectile dysfunction, unspecified Liver Panel 11/05/24 E66.811 - Obesity, class 1, E78.5 - Hyperlipidemia, unspecified, I10 - Essential (primary) hypertension, N52.9 - Male erectile dysfunction, unspecified Prostate Specific Antigen 11/05/24 E66.811 - Obesity, class 1, E78.5 - Hyperlipidemia, unspecified, I10 - Essential (primary) hypertension, N52.9 - Male erectile dysfunction, unspecified Vitamin D 25-OH Total 11/05/24 E66.811 - Obesity, class 1, E78.5 - Hyperlipidemia, unspecified, I10 - Essential (primary) hypertension, N52.9 - Male erectile dysfunction, unspecified Basic Metabolic Panel 11/05/24 E66.811 - Obesity, class 1, E78.5 - Hyperlipidemia, unspecified, I10 - Essential (primary) hypertension, N52.9 - Male erectile dysfunction, unspecified Referrals Truck Operator Nutrition Referral E66.811 - Obesity, class 1 Medications: Discontinued prednisone Discontinued Reason: Patient Completed Course 40 mg (2 x 20 mg) PO DAILY 10 tabs 0RF valacyclovir Discontinued Reason: Patient Completed Course 1,000 mg PO TID 21 tabs 0RF Patient Instructions: Allergies- trial linette (fexofenadine) and a nasal spray (flonase or nasocort)
[2024-11-05 09:36] VITALS: BP 150/90; PULSE 65; RESP 1; TEMP 36.8; O2SAT 95; BMI 31.9
--- OUTSIDE RECORDS SUMMARY | 2024-11-05 10:29 | XMS_ITS | Patient Health Record ---
Author Organization [facility] Address [address] [place] [address] Care Team Providers Care Biological Chemist Name Role Phone Barrett Domingo MD Primary Care Provider Unavail able Montse Leblanc Unavailable [phone] Allergies No Known Allergies Reason For Referral No Information Medications Medication SIG (Take, Route, Fr equency, Duration) Notes Start Date End Date Status Lisinopril 20 MG 1 tablet Orally Once a day Active Cephalexin 500 MG 1 capsule Orally nic ry 12 hrs; Duration: 5 days Active Social History Tobacco Use: [...] Are you an other tobacco user? No Plan Of Treatment No Information Insurance Providers Payer Name Payer Address Payer Phone Subscriber Number Group Number Insured Name Patient Relationship to Insured Coverage Start Date Coverage End Date [employer] [address] [place] [address] [phone] [id number] Agustin Dubose Self - patient is the insured Medical (General) History Medical History History ICD Code High blood pressure Measles Mumps Chicken pox Surgical History Surgery Date(Month/Year) appendectomy broken left elbow
== END 2024-11-05 10:00 | disposition home or self-care (01) ==
LOC: HO.HMCHD 09:26
PROVIDERS: PCP Family Medicine; Visit Provider Physician Assistant
DX: E78.5 Hyperlipidemia, unspecified (principal); I10 Essential (primary) hypertension; N52.9 Male erectile dysfunction, unspecified; E66.811 Obesity, class 1; J30.2 Other seasonal allergic rhinitis

== ENCOUNTER 2025-01-08 09:46 | Outpatient (AMB) | payer BC, SELFPAY ==
--- NOTE | 2025-01-08 09:47 | MHC.PC.OV ---
Vital Signs 01/08/25 09:51 Height 5 ft 8.58 in Weight 96.162 kg BMI 31.7 BP 150/76 H Blood Pressure Location Lt brachial Position Sitting Respiration 18 Pulse 70 Pulse Source Pulse Oximeter Temp 97.7 F Temp Source Temporal Artery Scan Pulse Oximetry (%) 98 Oxygen Delivery Method Room Air Intake Visit Reasons: est pt Sheron/Dr Caballero Prosthodontist Required: No Accompanied by: Self / Same As Patient Allergies No Known Allergies (No Known Allergies*) Allergy (Verified 01/08/25 09:47) Medication List - Last Reconciled 01/08/25 by CARLOZ Bell lisinopril 20 mg PO DAILY sildenafil 100 mg PO DAILY PRN Tobacco use date assessed: 11/05/24 Dental Screening Dental Screen Date: 11/05/24 HPI HPI Comments History of Present Illness Details 59-year-old male with history of hyperlipidemia, hypertension, GERD, erectile dysfunction presenting to the office today for management of chronic conditions and to establish care. He is a former Dr. Caballero patient, last seen 05/2024. Reports he has had increased stress as he works long hours at [employer] and he and his has assumed care of their 2 grandchildren, ages 18 months and 3 years. Hypertension-compliant with lisinopril 20 mg daily. Blood pressure in the office today initially 150/76, recheck 146/88. Does report following a very unhealthy diet. Drinks large amount of soda daily and highly processed foods/fried foods. Hyperlipidemia-last LDL 137. Not on statin. Diet as above GERD-only occasional. Uses Tums as needed. No scheduled medication. Avoid triggering foods. gerd- prn tums. rarely. eliminates Erectile dysfunction-using 100 mg sildenafil as needed. Reports he is only getting 10 tablets per month, likely related to insurance approval but is requesting increase number of tablets. Concerns: Bilateral knee pain ongoing for years. No injury. Reports that he does experience stiffness in the morning or prolonged periods of sitting that improves with immobility. He states that occasionally when walking, he experiences instability but has not fallen. No other weakness or paresthesias. No swelling. No excessive alcohol consumption Left elbow pain-ongoing since fracture several years ago of the olecranon. Did not require surgical fixation. No instability or decreased range of motion. Never underwent physical therapy. He is right-hand dominant. Health maintenance: Has never undergone screening colonoscopy. Did undergo Cologuard testing 05/2022 which was negative. No change in bowel habits or hematochezia or unintentional weight loss Due for screening PSA ROS: See HPI EXAM: Constitutional - Awake and Alert, No apparent distress Eyes - PERRL Cardiovascular - S1S2, RRR, No edema Respiratory - Normal lung expansion, Normal respiratory effort, No respiratory distress, CTA bilaterally Extremities - no calf tenderness bilaterally, no swelling MSK-no swelling, effusion, warmth, erythema of the knees bilaterally. No instability noted. Negative Terrie test. Full range of motion Skin - Warm/Dry Neurological - Alert & oriented x3. 5/5 strength in the bilateral lower extremities Psychological - Appropriate affect [facility] Medical History (Updated 01/08/25 @ 10:12 by CARLOZ Bell) Leblanc's palsy Gout Seasonal allergies Obesity (BMI 30.0-34.9) HLD (hyperlipidemia) Erectile dysfunction HTN (hypertension) Social History Housing: House Patient Tobacco Use Status: Former Tobacco user (quite in 1999) e-Cigarette/Vaping Use: Never Used service: Yes Current occupational status: employed Cognitive needs: No Hearing needs: No Vision needs: Yes (Rx glasses) Questionnaire Thrive Questionnaire Date Thrive assessed: 11/06/24 DOROTA-7 AMB Questionnaire DOROTA-7 Date DOROTA - 7 assessed: 11/06/24 Source: Developed by Drs. Agustin Castillo, Glo Boucher, Gordon Shirley and colleagues, with an educational [email or web address] from [email or web address]. Physical exam (Primary Care) Vital Signs: Last Vital Signs Temp 97.7 F 01/08/25 09:51 Pulse 70 01/08/25 09:51 Resp 18 01/08/25 09:51 BP 150/76 H 01/08/25 09:51 Pulse Ox 98 01/08/25 09:51 Oxygen Delivery Method Room Air 01/08/25 09:51 BMI result Body Mass Index 31.7 Tobacco/Smoking Status: Tobacco use Status Tobacco use date assessed 11/05/24 01/08/25 09:49 Patient Tobacco Use Status Former Tobacco user (quite 01/08/25 09:49 in 1999) e-Cigarette/Vaping Use Never Used 01/08/25 09:49 Thrive Assessment: Date of Thrive Assessment Date Thrive assessed 11/06/24 01/08/25 09:49 Coding Level of Care Code Tele New Pt Level 4 (39517) Complex EM visit Add On G2211 Diagnoses HTN (hypertension) I10 Erectile dysfunction N52.9 HLD (hyperlipidemia) E78.5 Obesity (BMI 30.0-34.9) E66.811 Osteoarthritis of knees, bilateral M17.0 Left elbow pain M25.522 Assessment & Plan Assessment & Plan (1) HTN (hypertension): Code(s): I10 - Essential (primary) hypertension Category: Medical Plan: Uncontrolled. Did discuss making significant dietary changes including lowering caloric intake with emphasis on protein, vegetables, fruits and limiting consumption of sugars, caffeine, simple carbohydrates and highly processed foods. Recommend increasing weight-bearing exercise which will also help with weight loss. Recommend least 150 minutes of weight-bearing exercise, moderate intensity per week (2) Erectile dysfunction: Code(s): N52.9 - Male erectile dysfunction, unspecified Category: Medical Plan: Refill of sildenafil provided. He is given printout for [facility] as it is unlikely insurance will cover increased number of tablets (3) HLD (hyperlipidemia): Code(s): E78.5 - Hyperlipidemia, unspecified Category: Medical Plan: Lipid panel ordered. ASCVD risk score to be calculated pending results of study. Diet as above (4) Obesity (BMI 30.0-34.9): Code(s): E66.811 - Obesity, class 1 Category: Medical Plan: As above. Has been referred to weight management, given printout of referral (5) Osteoarthritis of knees, bilateral: Code(s): M17.0 - Bilateral primary osteoarthritis of knee Category: Medical Plan: XR of the knees bilaterally ordered. Suspect mild to moderate degree of osteoarthritis. No evidence of meniscal tear. Given prescription for diclofenac gel which can also be purchased [id number]. Recommend ice, compression as needed. Weight loss as above (6) Left elbow pain: Code(s): M25.522 - Pain in left elbow Category: Medical Plan: History of olecranon fracture. XR of the left elbow ordered. Pending results of imaging, we will likely refer to physical therapy versus referral to Orthopedics. Plan Follow-up in the office in 1 month. Dietary recommendations as above. Labs to be completed today. X-rays as ordered. Orders: Orders Basic Metabolic Panel Today E66.811 - Obesity, class 1, E78.5 - Hyperlipidemia, unspecified, I10 - Essential (primary) hypertension, N52.9 - Male erectile dysfunction, unspecified Hemoglobin A1c Today E66.811 - Obesity, class 1, E78.5 - Hyperlipidemia, unspecified, I10 - Essential (primary) hypertension, N52.9 - Male erectile dysfunction, unspecified Lipid Panel Today E66.811 - Obesity, class 1, E78.5 - Hyperlipidemia, unspecified, I10 - Essential (primary) hypertension, N52.9 - Male erectile dysfunction, unspecified Prostate Specific Antigen Today E66.811 - Obesity, class 1, E78.5 - Hyperlipidemia, unspecified, I10 - Essential (primary) hypertension, N52.9 - Male erectile dysfunction, unspecified XR Knee Isreal 3V Today E66.811 - Obesity, class 1, E78.5 - Hyperlipidemia, unspecified, I10 - Essential (primary) hypertension, M17.0 - Bilateral primary osteoarthritis of knee, N52.9 - Male erectile dysfunction, unspecified Complete Blood Count Auto Diff Today E66.811 - Obesity, class 1, E78.5 - Hyperlipidemia, unspecified, I10 - Essential (primary) hypertension, N52.9 - Male erectile dysfunction, unspecified Liver Panel Today E66.811 - Obesity, class 1, E78.5 - Hyperlipidemia, unspecified, I10 - Essential (primary) hypertension, N52.9 - Male erectile dysfunction, unspecified Vitamin D 25-OH Total Today E66.811 - Obesity, class 1, E78.5 - Hyperlipidemia, unspecified, I10 - Essential (primary) hypertension, N52.9 - Male erectile dysfunction, unspecified XR elbow LT 2V Today E66.811 - Obesity, class 1, E78.5 - Hyperlipidemia, unspecified, I10 - Essential (primary) hypertension, M25.522 - Pain in left elbow, N52.9 - Male erectile dysfunction, unspecified Medications: New sildenafil 100 mg PO DAILY PRN 30 tabs 2RF erectile dysfunction diclofenac sodium 1% apply to single knee, ankle, foot; for foot includes sole/toes/top of foot 4 grams topical QID 100 grams 1RF
[2025-01-08 09:51] VITALS: BP 150/76; PULSE 70; RESP 18; TEMP 36.5; O2SAT 98; BMI 31.7
--- OUTSIDE RECORDS SUMMARY | 2025-01-08 11:30 | XMS_ITS | Patient Health Record ---
Author Organization [facility] Address [address] [place] [address] Care Team Providers Care Body Engineer Name Role Phone Barrett Domingo MD Primary Care Provider Unavail able Montse Leblanc Unavailable [phone] Allergies No Known Allergies Reason For Referral [...] End Date [employer] [address] [place] [address] [id number] [phone] [id number] Agustin Dubose Self - patient is the insured Medical (General) History Medical History History ICD Code High blood pressure Measles Mumps Chicken pox Surgical History Surgery Date(Month/Year) appendectomy broken left elbow
== END 2025-01-08 10:30 | disposition home or self-care (01) ==
PROVIDERS: PCP Physician Assistant; Visit Provider Physician Assistant
DX: I10 Essential (primary) hypertension (principal); N52.9 Male erectile dysfunction, unspecified; E66.811 Obesity, class 1; Z68.31 Body mass index [BMI] 31.0-31.9, adult; E78.5 Hyperlipidemia, unspecified; M17.0 Bilateral primary osteoarthritis of knee; M25.522 Pain in left elbow